=== PATIENT | female | born 1980 | race Two or more races ===

== ENCOUNTER 2016-07-29 04:36 | Inpatient (IN) | payer OTHER ==
[2016-07-29] MEDS ORDERED: ONDANSETRON HCL INJ/PF 4 MG/2 ML SDV IV ONE (05:05)
[2016-07-29] MEDS ORDERED: ACETAMINOPHEN 325 MG TABLET PO ONE ×2 (05:05→09:18)
[2016-07-29] MEDS ORDERED: MORPHINE SULFATE 10 MG/ML INJ IV ONE (05:05)
[2016-07-29] MEDS ORDERED: NORMAL SALINE 1000 ML 1,000 ML IV ONE ×3 (05:06→07:43)
--- NOTE | 2016-07-29 05:13 | ER Document Report ---
ED GI/ <AFUAROSALIE - Last Filed: 07/29/16 10:08> - General TRAVEL OUTSIDE OF THE [place] IN LAST 30 DAYS: No <JOSS LOPEZ - Last Filed: 07/29/16 23:16> - General Chief Complaint: Flank Pain Stated Complaint: SHORTNESS OF BREATH Notes: Patient is a 35-year-old female that comes emergency department for chief complaint of pain in both sides of her mid to lower back, fever, chills, and nausea when she tries to eat. Patient states symptoms started about 6 days ago , initially started out his burning with urination, seen by primary care and placed on Bactrim, she states symptoms have only worsened. Patient has had a menstrual cycle this month, she denies any daily medications, she denies any other medical history. (JOSS LOPEZ) - Related Data Allergies/Adverse Reactions: No Known Allergies Allergy (Verified 07/29/16 04:41) Home Medications: Current Home Medications No Home Medications 07/29/16 [History] Past Medical History - General Information source: Patient - Social History Smoking Status: Never Smoker Chew tobacco use (# tins/day): No Frequency of alcohol use: None Drug Abuse: None Lives with: Family Family History: Reviewed & Not Pertinent Patient has suicidal ideation: No Patient has homicidal ideation: No Renal/ Medical History: Denies: Hx Peritoneal Dialysis Psychiatric Medical History: Reports: Hx Anxiety, Hx Depression - Immunizations Hx Diphtheria, Pertussis, Tetanus Vaccination: Yes <JOSS LOPEZ - Last Filed: 07/29/16 23:16> Review of Systems - Review of Systems Constitutional: See HPI EENT: No symptoms reported Cardiovascular: No symptoms reported Respiratory: No symptoms reported Gastrointestinal: See HPI Genitourinary: See HPI Female Genitourinary: No symptoms reported Musculoskeletal: No symptoms reported Skin: No symptoms reported Hematologic/Lymphatic: No symptoms reported Neurological/Psychological: No symptoms reported <JOSS LOPEZ - Last Filed: 07/29/16 23:16> Physical Exam - Vital signs Interpretation: Normal - General General appearance: Alert, Anxious In distress: Mild - HEENT Head: Normocephalic, Atraumatic Eyes: Normal Pupils: PERRL - Respiratory Respiratory status: No respiratory distress Chest status: Nontender Breath sounds: Normal Chest palpation: Normal - Cardiovascular Rhythm: Regular, Tachycardia Heart sounds: Normal auscultation, S1 appreciated, S2 appreciated Murmur: No - Abdominal Inspection: Normal Distension: No distension Bowel sounds: Normal Tenderness: Nontender. No: Tender, Guarding Organomegaly: No organomegaly - Back Back: CVA tenderness - Marked CVA tenderness bilaterally - Extremities General upper extremity: Normal inspection, Nontender, Normal color, Normal ROM , Normal temperature General lower extremity: Normal inspection, Nontender, Normal color, Normal ROM , Normal temperature, Normal weight bearing. No: [place]'s sign - Neurological Neuro grossly intact: Yes Cognition: Normal Orientation: AAOx4 Wayne Coma Scale Eye Opening: Spontaneous Wayne Coma Scale Verbal: Oriented [place] Coma Scale Motor: Obeys Commands Wayne Coma Scale Total: 15 Speech: Normal Motor strength normal: LUE, RUE, LLE, RLE Sensory: Normal - Psychological Associated symptoms: Anxious - Skin Skin Temperature: Warm Skin Moisture: Dry Skin Color: Normal <JOSS LOPEZ - Last Filed: 07/29/16 23:16> - Vital signs Vitals: Temp Pulse Resp BP Pulse Ox 100.6 F H 124 H 20 108/75 96 07/29/16 04:52 07/29/16 04:52 07/29/16 04:52 07/29/16 04:52 07/29/16 04:52 (ROSALIE CAAL) (JOSS LOPEZ) Course - Laboratory Result Diagrams: 07/29/16 05:15 07/29/16 05:15 <ROSALIE CAAL - Last Filed: 07/29/16 10:08> - Laboratory Result Diagrams: 07/29/16 05:15 07/29/16 16:10 <JOSS LOPEZ - Last Filed: 07/29/16 23:16> - Re-evaluation Re-evalutation: 07/29/16 07:46 Patient continues mildly tachycardic 104, blood pressure 103/58. Patient reports feeling somewhat improved from initial presentation. Patient's breath sounds clear bilaterally, patient with good cap refill less than 3 seconds, skin to trunk slightly moist, patient reports that initially she was diaphoretic. Patient with good peripheral pulses bilaterally. 07/29/16 09:00 pt blood pressure 94/60. Patient tachycardic 1:15. Urinalysis resulted. RN to attain temperature. 07/29/16 09:[address] Daniels regarding admission of patient. Agrees to come and examine patient 07/29/16 09:[address] Stanton regarding patient presentation. Review of patient's previous records shows that patient has run blood pressure 100s over 60s in the past. Patient does continues tachycardic 130's, with blood pressure 90s over 60s. 07/29/16 09:30 Dr. Stanton to bedside for examination. Does not recommend any additional IV fluid bolus or pressors at this time. Recommends giving patient Toradol 15 mg IV and treating her fever that is currently 101. 07/29/16 09:43 Patients chills/rigors are improving after Toradol was given. Heart rate 120s. 07/29/16 09:53 HR 110's, BP 112/68 07/29/16 10:07 Patient drinking oral contrast. RN states that hospitalist has evaluated patient and has written orders for admission. (ROSALIE CAAL) Initial presentation patient noted to be tachycardic and febrile, not hypotensive, has chills and pain in bilateral CVA locations, abdomen is benign on examination. After Tylenol, pain medication, IV fluids patient states she feels much better, no longer in pain, she states she would like to go home. Levaquin infusing. Leukocytosis of 18,000, kidney function is unremarkable, urine is still pending. Urine delayed, called lab twice, finally urinalysis was being performed, report given to Mateo PENNY at bedside due to delay. Initially patient still stating she wants to go home, however because patient continues to be tachycardic, has become somewhat hypotensive, lactic acid, venous blood gas, and continuing monitoring will be performed, patient will be discussed with hospitalist for admission for pyelonephritis and suspected sepsis. (JOSS LOPEZ) - Vital Signs Vital signs: Temp Pulse Resp BP Pulse Ox 101.1 F H 117 H 20 102/52 L 97 07/29/16 17:52 07/29/16 17:52 07/29/16 22:31 07/29/16 22:31 07/29/16 22:31 (ROSALIE CAAL) (JOSS LOPEZ) - Laboratory Laboratory results interpreted by me: 07/29/16 07/29/16 07/29/16 05:15 05:15 05:15 WBC 18.6 H Seg Neutrophils % 83.8 H Lymphocytes % 7.8 L Absolute Neutrophils 15.6 H Absolute Monocytes 1.5 H Sodium 135.7 L Glucose 122 H Phosphorus 2.3 L Urine Protein Urine Ketones Urine Blood Ur Leukocyte Esterase 07/29/16 06:03 WBC Seg Neutrophils % Lymphocytes % Absolute Neutrophils Absolute Monocytes Sodium Glucose Phosphorus Urine Protein 100 H Urine Ketones 80 H Urine Blood LARGE H Ur Leukocyte Esterase SMALL H (ROSALIE CAAL) Discharge - Discharge Admitting Provider: Hospitalist Unit Admitted: ICU <ROSALIE CAAL - Last Filed: 07/29/16 10:08> - Discharge Admitting Provider: Hospitalist Unit Admitted: ICU <JOSS LOPEZ - Last Filed: 07/29/16 23:16> - Discharge Clinical Impression: Pyelonephritis Fever Qualifiers: Fever type: unspecified Qualified Code(s): R50.9 - Fever, unspecified Condition: Serious Disposition: ADMITTED INPATIENT
[2016-07-29 05:35] LABS: ABSOLUTE LYMPHOCYTES (AUTO) 1.4 10^3/uL (0.5-4.7); ABSOLUTE MONOCYTES (AUTO) 1.5 10^3/uL (0.1-1.4); ABSOLUTE NEUT (AUTO) 15.6 10^3/uL (1.7-8.2); BASOPHILS % (AUTO) 0.2 % (0-2); HEMATOCRIT 37.5 % (36.0-47.0); HEMOGLOBIN 12.2 g/dL (12.0-15.5); HGB HCT DIFFERENCE -0.9; LYMPHOCYTES % (AUTO) 7.8 % (13-45); MEAN CORPUSCULAR HEMOGLOBIN 28.6 pg (27.0-33.4); MEAN CORPUSCULAR HGB CONC 32.6 g/dL (32.0-36.0); MEAN CORPUSCULAR VOLUME 88 fl (80-97); MONOCYTES % (AUTO) 8.2 % (3-13); RED BLOOD COUNT 4.28 10^6/uL (3.72-5.28); RED CELL DISTRIBUTION WIDTH 12.6 % (11.5-14.0); SEGMENTED NEUTROPHILS % (AUTO) 83.8 % (42-78); WHITE BLOOD COUNT 18.6 10^3/uL (4.0-10.5)
[2016-07-29] MEDS ORDERED: LEVOFLOXACIN 750 MG/D5W RTU 150 ML IV ONE (05:44)
[2016-07-29 05:53] LABS: ANION GAP 15 (5-19); BLOOD UREA NITROGEN 8 mg/dL (7-20); CALCIUM 9.2 mg/dL (8.4-10.2); CARBON DIOXIDE 23 mmol/L (22-30); CHLORIDE 98 mmol/L (98-107); CREATININE RESULT 0.78 mg/dL (0.52-1.25); GLUCOSE 122 mg/dL (75-110); POTASSIUM 3.8 mmol/L (3.6-5.0); SODIUM 135.7 mmol/L (137-145)
[2016-07-29 07:43] LABS: APPEARANCE,URINE SLIGHTLY-CLOUDY; BILIRUBIN,URINE NEGATIVE (NEGATIVE); GLUCOSE, URINE NEGATIVE (NEGATIVE); KETONES,URINE 80 mg/dL (NEGATIVE); LEUKOCYTE ESTERASE,URINE SMALL (NEGATIVE); NITRITE,URINE NEGATIVE (NEGATIVE); PROTEIN,URINE 100 mg/dL (NEGATIVE); URINE SPECIFIC GRAVITY 1.013; UROBILINOGEN,URINE NEGATIVE mg/dL (<2.0)
[2016-07-29 08:33] LABS: VENOUS BLOOD BASE EXCESS -3.1 mmol/L; VENOUS BLOOD HCO3 21.5 mmol/L (20-32); VENOUS BLOOD PH 7.38 (7.30-7.42)
[2016-07-29] MEDS ORDERED: KETOROLAC TROMETHAMINE INJ/PF 30 MG/1 ML SDV IV ONE (09:27)
[2016-07-29] MEDS ORDERED: CEFTRIAXONE RTU 1 GM/D5W 50 ML IV ONE (09:31)
[2016-07-29] MEDS ORDERED: MAGNESIUM HYDROXIDE SUSP 30 ML UDCUP PO PRN (09:41)
[2016-07-29 10:42] LABS: PROTHROMBIN TIME 14.9 SEC (11.4-15.4)
[2016-07-29 11:07] LABS: LIPASE 30.3 U/L (23-300); MAGNESIUM 1.6 mg/dL (1.6-2.3); PHOSPHORUS 2.3 mg/dL (2.5-4.5)
[2016-07-29] MEDS: NORMAL SALINE 1000 ML 1,000 ML IV PRN ×2 (11:14→22:00)
[2016-07-29] MEDS: PIPERACILLIN SODIUM/TAZOBACTAM 3.375 GM in NORMAL SALINE 100 ML IV SCH ×2 (11:15→18:24)
[2016-07-29] MEDS: PANTOPRAZOLE SODIUM 40 MG VIAL IV SCH ×2 (11:20→23:00)
[2016-07-29] MEDS: DOCUSATE SODIUM 100 MG CAPSULE PO SCH (11:21)
[2016-07-29] MEDS: 1/2 NORMAL SALINE 1,000 ML IV PRN ×4 (12:00→19:30)
--- NOTE | 2016-07-29 13:08 | PDOC H&P ---
History of Present Illness Admission Date/PCP: 07/29/16 09:41 Patient complains of: Fevers chills and weakness with flank pain History of Present Illness: SYDNEE BROWNING is a 35 year old female presents from home with the above complaints for the past week. She was seen by her primary care provider at the beginning of the week and diagnosed with urinary tract infection and placed on Bactrim therapy. She does not notice any improvement while on this therapy. She continues to have increasing flank pain now bilateral. She reports subjective fevers at home, rigors, nausea with vomiting, diarrhea 24 hour period. This all started with dysuria on Monday. Her condition is severely declined to the point that she is not able to keep anything down take anything orally though she reports taking the Bactrim as prescribed. In the emergency department she was found to be hypotensive with a probable pyelonephritis and septic shock we were asked to admit for further treatment and investigation. Past Medical History Psychiatric Medical History: Reports: Depression Past Surgical History Past Surgical History: Reports: None Social History Information Source: Patient Smoking Status: Never Smoker Frequency of Alcohol Use: None Hx Recreational Drug Use: No - Advance Directive Resuscitation Status: Full Code Family History Family History: Reviewed & Not Pertinent Parental Family History Reviewed: Yes Children Family History Reviewed: Yes Sibling(s) Family History Reviewed.: Yes Medication/Allergy Allergies/Adverse Reactions: No Known Allergies Allergy (Verified 07/29/16 04:41) Review of Systems Constitutional: PRESENT: anorexia, chills, fatigue, fever(s), headache(s), night sweats, weakness. ABSENT: weight gain, weight loss Eyes: ABSENT: visual disturbances Ears: ABSENT: hearing changes Cardiovascular: ABSENT: chest pain, dyspnea on exertion, edema, orthropnea, palpitations Respiratory: ABSENT: cough, hemoptysis Gastrointestinal: PRESENT: abdominal pain, constipation, diarrhea, nausea, vomiting. ABSENT: hematemesis, hematochezia Genitourinary: PRESENT: dysuria. ABSENT: hematuria Musculoskeletal: ABSENT: joint swelling Integumentary: ABSENT: rash, wounds Neurological: ABSENT: abnormal gait, abnormal speech, confusion, dizziness, focal weakness, syncope Psychiatric: ABSENT: anxiety, depression, homidical ideation, suicidal ideation Endocrine: ABSENT: cold intolerance, heat intolerance, polydipsia, polyuria Hematologic/Lymphatic: ABSENT: easy bleeding, easy bruising Physical Exam Vital Signs: Temp Pulse Resp BP Pulse Ox 101 F H 124 H 34 H 93/58 L 100 07/29/16 09:25 07/29/16 04:52 07/29/16 12:01 07/29/16 12:01 07/29/16 12:01 General appearance: PRESENT: mild distress, well-developed, well-nourished Head exam: PRESENT: atraumatic, normocephalic Eye exam: PRESENT: conjunctiva pink, EOMI, PERRLA. ABSENT: scleral icterus Ear exam: PRESENT: normal external ear exam Mouth exam: PRESENT: dry mucosa, tongue midline Neck exam: ABSENT: carotid bruit, JVD, lymphadenopathy, thyromegaly Respiratory exam: PRESENT: clear to auscultation dinorah. ABSENT: rales, rhonchi, wheezes Cardiovascular exam: PRESENT: RRR, tachycardia. ABSENT: diastolic murmur, rubs , systolic murmur Pulses: PRESENT: normal dorsalis pedis pul Vascular exam: PRESENT: normal capillary refill GI/Abdominal exam: PRESENT: mass, normal bowel sounds, soft, tenderness - Bilateral flank pain over the lower poles of both kidneys. ABSENT: distended, guarding, rebound Rectal exam: PRESENT: deferred Extremities exam: PRESENT: full ROM. ABSENT: calf tenderness, clubbing, pedal edema Neurological exam: PRESENT: alert, awake, oriented to person, oriented to place , oriented to time, oriented to situation Psychiatric exam: PRESENT: appropriate affect, normal mood. ABSENT: homicidal ideation, suicidal ideation Skin exam: PRESENT: dry, intact, warm. ABSENT: cyanosis, rash Results Laboratory Results: Labs- Last Values WBC 18.6 10^3/uL (4.0-10.5) H 07/29/16 05:15 RBC 4.28 10^6/uL (3.72-5.28) 07/29/16 05:15 Hgb 12.2 g/dL (12.0-15.5) 07/29/16 05:15 Hct 37.5 % (36.0-47.0) 07/29/16 05:15 MCV 88 fl (80-97) 07/29/16 05:15 MCH 28.6 pg (27.0-33.4) 07/29/16 05:15 MCHC 32.6 g/dL (32.0-36.0) 07/29/16 05:15 RDW 12.6 % (11.5-14.0) 07/29/16 05:15 Plt Count 181 10^3/uL (150-450) 07/29/16 05:15 Seg Neutrophils % 83.8 % (42-78) H 07/29/16 05:15 Lymphocytes % 7.8 % (13-45) L 07/29/16 05:15 Monocytes % 8.2 % (3-13) 07/29/16 05:15 Eosinophils % 0.0 % (0-6) 07/29/16 05:15 Basophils % 0.2 % (0-2) 07/29/16 05:15 Absolute Neutrophils 15.6 10^3/uL (1.7-8.2) H 07/29/16 05:15 Absolute Lymphocytes 1.4 10^3/uL (0.5-4.7) 07/29/16 05:15 Absolute Monocytes 1.5 10^3/uL (0.1-1.4) H 07/29/16 05:15 Absolute Eosinophils 0.0 10^3/uL (0.0-0.6) 07/29/16 05:15 Absolute Basophils 0.0 10^3/uL (0.0-0.2) 07/29/16 05:15 PT 14.9 SEC (11.4-15.4) 07/29/16 05:15 INR 1.13 07/29/16 05:15 VBG pH 7.38 (7.30-7.42) 07/29/16 08:00 VBG pCO2 37.0 mmHg (35-63) 07/29/16 08:00 VBG HCO3 21.5 mmol/L (20-32) 07/29/16 08:00 VBG Base Excess -3.1 mmol/L 07/29/16 08:00 Sodium 135.7 mmol/L (137-145) L 07/29/16 05:15 Potassium 3.8 mmol/L (3.6-5.0) 07/29/16 05:15 Chloride 98 mmol/L (98-107) 07/29/16 05:15 Carbon Dioxide 23 mmol/L (22-30) 07/29/16 05:15 Anion Gap 15 (5-19) 07/29/16 05:15 BUN 8 mg/dL (7-20) 07/29/16 05:15 Creatinine 0.78 mg/dL (0.52-1.25) 07/29/16 05:15 Est GFR ( Amer) > 60 (>60) 07/29/16 05:15 Est GFR (Non-Af Amer) > 60 (>60) 07/29/16 05:15 Glucose 122 mg/dL (75-110) H 07/29/16 05:15 Lactic Acid 0.8 mmol/L (0.7-2.1) 07/29/16 08:00 Calcium 9.2 mg/dL (8.4-10.2) 07/29/16 05:15 Phosphorus 2.3 mg/dL (2.5-4.5) L 07/29/16 05:15 Magnesium 1.6 mg/dL (1.6-2.3) 07/29/16 05:15 Amylase 38 U/L (30-110) 07/29/16 05:15 Lipase 30.3 U/L (23-300) 07/29/16 05:15 Urine Color YELLOW 07/29/16 06:03 Urine Appearance SLIGHTLY-CLOUDY 07/29/16 06:03 Urine pH 5.0 (5.0-9.0) 07/29/16 06:03 Ur Specific [place] 1.013 07/29/16 06:03 Urine Protein 100 mg/dL (NEGATIVE) H 07/29/16 06:03 Urine Glucose (UA) NEGATIVE mg/dL (NEGATIVE) 07/29/16 06:03 Urine Ketones 80 mg/dL (NEGATIVE) H 07/29/16 06:03 Urine Blood LARGE (NEGATIVE) H 07/29/16 06:03 Urine Nitrite NEGATIVE (NEGATIVE) 07/29/16 06:03 Urine Bilirubin NEGATIVE (NEGATIVE) 07/29/16 06:03 Urine Urobilinogen NEGATIVE mg/dL (<2.0) 07/29/16 06:03 Ur Leukocyte Esterase SMALL (NEGATIVE) H 07/29/16 06:03 Urine WBC (Auto) 53 /HPF 07/29/16 06:03 Urine RBC (Auto) 127 /HPF 07/29/16 06:03 Urine Bacteria (Auto) 3+ /HPF 07/29/16 06:03 Squamous Epi Cells Auto 1 /HPF 07/29/16 06:03 Urine Mucus (Auto) OCC /LPF 07/29/16 06:03 Urine Ascorbic Acid NEGATIVE (NEGATIVE) 07/29/16 06:03 Urine HCG, Qual NEGATIVE (NEGATIVE) 07/29/16 06:03 07/29/16 08:24 Blood Culture - Pending Blood 07/29/16 06:03 Urine Culture - Pending Clean Catch Midstream 07/29/16 05:15 Blood Culture - Pending Blood Impressions: Guidance Fluoroscopy 07/29/16 00:00 IMPRESSION: SUCCESSFUL PLACEMENT OF A 5 FR DUAL LUMEN 43 CM PICC IN THE left basilic VEIN. Interventional Vascular Procedure 07/29/16 00:00 IMPRESSION: SUCCESSFUL PLACEMENT OF A 5 FR DUAL LUMEN 43 CM PICC IN THE left basilic VEIN. PICC Line Insertion 07/29/16 00:00 IMPRESSION: SUCCESSFUL PLACEMENT OF A 5 FR DUAL LUMEN 43 CM PICC IN THE left basilic VEIN. Assessment & Plan - Diagnosis (1) Pyelonephritis Is this a current diagnosis for this admission?: YesPlan: Admitted to the ICU for aggressive IV fluids. Will start empiric Zosyn therapy as she has failed Bactrim. If her condition were to deteriorate further will add vancomycin while we await culture results to narrow spectrum IV antibiotics. Interventional radiology consulted for urgent PICC line placement. Will check CT of the abdomen and pelvis looking for perinephric stranding hydronephrosis obstruction etc. (2) Septic shock Is this a current diagnosis for this admission?: YesPlan: Requires placement in the ICU for critical care hemodynamic monitoring. Aggressive IV rehydration and if fails we'll add stress dose steroids, trend H&H , monitor renal function. - Time Time Spent: 50 to 70 Minutes Anticipated discharge: Home Within: within 72 hours
[2016-07-29] MEDS: MORPHINE SULFATE 10 MG/ML INJ IV PRN ×2 (14:10→18:28)
[2016-07-29] MEDS: ACETAMINOPHEN 325 MG TABLET PO PRN ×2 (14:10→18:29)
[2016-07-29] MEDS: ONDANSETRON HCL INJ/PF 4 MG/2 ML SDV IV PRN ×2 (14:10→18:28)
[2016-07-29] MEDS: KETOROLAC TROMETHAMINE INJ/PF 30 MG/1 ML SDV IV PRN ×2 (15:10→21:00)
[2016-07-29] MEDS ORDERED: 1/2 NORMAL SALINE 1,000 ML IV ONE (15:50)
[2016-07-29 17:07] LABS: ANION GAP 12 (5-19); BLOOD UREA NITROGEN 6 mg/dL (7-20); CARBON DIOXIDE 19 mmol/L (22-30); CHLORIDE 101 mmol/L (98-107); CREATININE RESULT 0.63 mg/dL (0.52-1.25); GLUCOSE 102 mg/dL (75-110); POTASSIUM 3.4 mmol/L (3.6-5.0); SODIUM 132.2 mmol/L (137-145)
[2016-07-29 17:37] LABS: CALCIUM 7.3 mg/dL (8.4-10.2)
[2016-07-30] MEDS: ACETAMINOPHEN 325 MG TABLET PO PRN ×2 (01:20→11:44)
[2016-07-30] MEDS: ONDANSETRON HCL INJ/PF 4 MG/2 ML SDV IV PRN ×2 (01:40→18:40)
[2016-07-30 07:12] LABS: ANION GAP 11 (5-19); BLOOD UREA NITROGEN 5 mg/dL (7-20); CALCIUM 7.7 mg/dL (8.4-10.2); CARBON DIOXIDE 19 mmol/L (22-30); CHLORIDE 107 mmol/L (98-107); CREATININE RESULT 0.54 mg/dL (0.52-1.25); GLUCOSE 106 mg/dL (75-110); POTASSIUM 3.5 mmol/L (3.6-5.0); SODIUM 136.8 mmol/L (137-145)
[2016-07-30 07:16] LABS: ABSOLUTE LYMPHOCYTES (AUTO) 1.1 10^3/uL (0.5-4.7); ABSOLUTE MONOCYTES (AUTO) 1.4 10^3/uL (0.1-1.4); ABSOLUTE NEUT (AUTO) 15.1 10^3/uL (1.7-8.2); BASOPHILS % (AUTO) 0.3 % (0-2); EOSINOPHILS % (AUTO) 0.1 % (0-6); HEMATOCRIT 28.6 % (36.0-47.0); HGB HCT DIFFERENCE 0.5; LYMPHOCYTES % (AUTO) 6.2 % (13-45); MEAN CORPUSCULAR HEMOGLOBIN 29.4 pg (27.0-33.4); MEAN CORPUSCULAR HGB CONC 33.7 g/dL (32.0-36.0); MEAN CORPUSCULAR VOLUME 87 fl (80-97); MONOCYTES % (AUTO) 7.9 % (3-13); RED BLOOD COUNT 3.28 10^6/uL (3.72-5.28); RED CELL DISTRIBUTION WIDTH 12.4 % (11.5-14.0); SEGMENTED NEUTROPHILS % (AUTO) 85.5 % (42-78); WHITE BLOOD COUNT 17.7 10^3/uL (4.0-10.5)
[2016-07-30 07:18] LABS: HEMOGLOBIN 9.7 g/dL (12.0-15.5)
[2016-07-30] MEDS: ENOXAPARIN SODIUM INJ 40 MG/0.4 ML DISP.SYRIN SUBCUT SCH (08:27)
[2016-07-30] MEDS: PANTOPRAZOLE SODIUM 40 MG VIAL IV SCH ×2 (09:17→21:22)
[2016-07-30] MEDS: DOCUSATE SODIUM 100 MG CAPSULE PO SCH (09:18)
--- NOTE | 2016-07-30 10:42 | PDOC PROGRESS REPORT ---
Subjective Progress Note for:: 07/30/16 Subjective:: SYDNEE BROWNING is a 35 year old female presents from home with the above complaints for the past week. She was seen by her primary care provider at the beginning of the week and diagnosed with urinary tract infection and placed on Bactrim therapy. She does not notice any improvement while on this therapy. She continues to have increasing flank pain now bilateral. She reports subjective fevers at home, rigors, nausea with vomiting, diarrhea 24 hour period. This all started with dysuria on Monday. Her condition is severely declined to the point that she is not able to keep anything down take anything orally though she reports taking the Bactrim as prescribed. In the emergency department she was found to be hypotensive with a probable pyelonephritis and septic shock we were asked to admit for further treatment and investigation. After aggressive fluid resuscitation, several liters of IV fluids, and initiation of antibiotic therapy the patient has finally stabilized. Her hemodynamics more consistent with a healthy 35-year-old female. Her pain is better controlled this morning. Her nausea has largely resolved. CT of the abdomen and pelvis revealed findings in the left kidney suggestive of pyelonephritis as likely explanation for her presentation. Physical Exam Vital Signs: Temp Pulse Resp BP Pulse Ox 98.3 F 117 H 24 H 97/72 L 85 L 07/30/16 10:03 07/29/16 17:52 07/30/16 10:02 07/30/16 10:02 07/30/16 10:02 Intake & Output 07/29/16 07/30/16 07/31/16 06:59 06:59 06:59 Output Total 3525 Balance -3525 General appearance: PRESENT: no acute distress, well-developed, well-nourished Head exam: PRESENT: atraumatic, normocephalic Eye exam: PRESENT: conjunctiva pink, EOMI, PERRLA. ABSENT: scleral icterus Mouth exam: PRESENT: moist, tongue midline Neck exam: ABSENT: JVD, tracheal deviation Respiratory exam: PRESENT: clear to auscultation dinorah, unlabored. ABSENT: rales , rhonchi, wheezes Cardiovascular exam: PRESENT: RRR, tachycardia. ABSENT: diastolic murmur, rubs , systolic murmur Pulses: PRESENT: normal dorsalis pedis pul Vascular exam: PRESENT: normal capillary refill GI/Abdominal exam: PRESENT: normal bowel sounds, soft, tenderness - Still some tenderness that now localizes mostly to the left flank and left lower quadrant; negative CVA tenderness. ABSENT: distended, guarding, rebound Rectal exam: PRESENT: deferred Extremities exam: PRESENT: full ROM, pedal edema - Nonpitting edema of the bilateral lower extremities. ABSENT: calf tenderness, clubbing Neurological exam: PRESENT: alert, awake, oriented to person, oriented to place , oriented to time, oriented to situation Psychiatric exam: PRESENT: appropriate affect, normal mood Skin exam: PRESENT: intact, warm - Moist. ABSENT: cyanosis, rash Results Laboratory Results: 07/30/16 06:43 07/30/16 06:43 07/29/16 07/30/16 07/30/16 16:10 06:43 06:43 WBC 17.7 H RBC 3.28 L Hgb 9.7 L D Hct 28.6 L MCV 87 MCH 29.4 MCHC 33.7 RDW 12.4 Plt Count 132 L Seg Neutrophils % 85.5 H Lymphocytes % 6.2 L Monocytes % 7.9 Eosinophils % 0.1 Basophils % 0.3 Absolute Neutrophils 15.1 H Absolute Lymphocytes 1.1 Absolute Monocytes 1.4 Absolute Eosinophils 0.0 Absolute Basophils 0.0 Sodium 132.2 L 136.8 L Potassium 3.4 L 3.5 L Chloride 101 107 Carbon Dioxide 19 L 19 L Anion Gap 12 11 BUN 6 L 5 L Creatinine 0.63 0.54 Est GFR ( Amer) > 60 > 60 Est GFR (Non-Af Amer) > 60 > 60 Glucose 102 106 Calcium 7.3 L 7.7 L Impressions: Abdomen/Pelvis CT 07/29/16 00:00 IMPRESSION: Abnormal enhancement pattern in the left kidney suspicious for pyelonephritis or infarction. Correlation with urinalysis is recommended Guidance Fluoroscopy 07/29/16 00:00 IMPRESSION: SUCCESSFUL PLACEMENT OF A 5 FR DUAL LUMEN 43 CM PICC IN THE left basilic VEIN. Interventional Vascular Procedure 07/29/16 00:00 IMPRESSION: SUCCESSFUL PLACEMENT OF A 5 FR DUAL LUMEN 43 CM PICC IN THE left basilic VEIN. PICC Line Insertion 07/29/16 00:00 IMPRESSION: SUCCESSFUL PLACEMENT OF A 5 FR DUAL LUMEN 43 CM PICC IN THE left basilic VEIN. Assessment & Plan - Diagnosis (1) Pyelonephritis Is this a current diagnosis for this admission?: YesPlan: Stable to downgrade to IMCU. Continue empiric Zosyn therapy as she has failed outpatient Bactrim. If her condition were to deteriorate further will add vancomycin while we await culture results to narrow spectrum IV antibiotics. Interventional radiology consulted for successful urgent PICC line placement. CT of the abdomen and pelvis confirms pyelonephritis. (2) Septic shock Is this a current diagnosis for this admission?: YesPlan: Continue Aggressive IV rehydration and, trend H&H, monitor renal function. (3) Hypokalemia Is this a current diagnosis for this admission?: YesPlan: Mild. Adjust IV fluids accordingly. Continue to monitor. (4) Anemia Qualifiers: Anemia type: unspecified type Qualified Code(s): D64.9 - Anemia, unspecified Is this a current diagnosis for this admission?: YesPlan: No evidence for acute blood loss. In July to trend H&H. Likely due to sepsis. - Time Time Spent with patient: 25-34 minutes
[2016-07-30] MEDS: PIPERACILLIN SODIUM/TAZOBACTAM 3.375 GM in NORMAL SALINE 100 ML IV SCH ×3 (11:31→23:53)
[2016-07-30] MEDS: POTASSI CL 20 MEQ/1/2NS 1L 1,000 ML IV PRN ×2 (11:31→18:11)
[2016-07-30] MEDS: KETOROLAC TROMETHAMINE INJ/PF 30 MG/1 ML SDV IV PRN ×2 (11:33→18:58)
[2016-07-30] MEDS ORDERED: NORMAL SALINE 1000 ML 1,000 ML IV ONE (13:14)
[2016-07-30] MEDS ORDERED: OXYCODONE-ACETAMINOPHEN 5-325 MG TABLET PO PRN (17:59)
[2016-07-30] MEDS: OXYCODONE-ACETAMINOPHEN 5-325 MG TABLET PO PRN ×2 (18:13→21:51)
[2016-07-31] MEDS: POTASSI CL 20 MEQ/1/2NS 1L 1,000 ML IV PRN (02:49)
[2016-07-31] MEDS: OXYCODONE-ACETAMINOPHEN 5-325 MG TABLET PO PRN ×5 (04:37→21:25)
[2016-07-31 06:51] LABS: ABSOLUTE BASOPHILS # (AUTO) 0.1 10^3/uL (0.0-0.2); ABSOLUTE EOSINOPHILS # (AUTO) 0.1 10^3/uL (0.0-0.6); ABSOLUTE LYMPHOCYTES (AUTO) 1.2 10^3/uL (0.5-4.7); ABSOLUTE NEUT (AUTO) 13.9 10^3/uL (1.7-8.2); BASOPHILS % (AUTO) 0.4 % (0-2); EOSINOPHILS % (AUTO) 0.5 % (0-6); HEMATOCRIT 28.7 % (36.0-47.0); HEMOGLOBIN 9.6 g/dL (12.0-15.5); HGB HCT DIFFERENCE 0.1; LYMPHOCYTES % (AUTO) 7.6 % (13-45); MEAN CORPUSCULAR HEMOGLOBIN 29.1 pg (27.0-33.4); MEAN CORPUSCULAR HGB CONC 33.6 g/dL (32.0-36.0); MEAN CORPUSCULAR VOLUME 87 fl (80-97); MONOCYTES % (AUTO) 6.3 % (3-13); RED CELL DISTRIBUTION WIDTH 12.6 % (11.5-14.0); SEGMENTED NEUTROPHILS % (AUTO) 85.2 % (42-78); WHITE BLOOD COUNT 16.3 10^3/uL (4.0-10.5)
[2016-07-31 07:06] LABS: ANION GAP 9 (5-19); BLOOD UREA NITROGEN 6 mg/dL (7-20); CALCIUM 8.1 mg/dL (8.4-10.2); CARBON DIOXIDE 23 mmol/L (22-30); CHLORIDE 108 mmol/L (98-107); CREATININE RESULT 0.52 mg/dL (0.52-1.25); GLUCOSE 84 mg/dL (75-110); POTASSIUM 3.6 mmol/L (3.6-5.0); SODIUM 139.8 mmol/L (137-145)
[2016-07-31] MEDS ORDERED: NORMAL SALINE 10 ML SDV (AFTER EACH USE) IV PRN (07:20)
[2016-07-31] MEDS: PIPERACILLIN SODIUM/TAZOBACTAM 3.375 GM in NORMAL SALINE 100 ML IV SCH ×4 (07:53→23:22)
[2016-07-31] MEDS: ENOXAPARIN SODIUM INJ 40 MG/0.4 ML DISP.SYRIN SUBCUT SCH (07:59)
[2016-07-31] MEDS: KETOROLAC TROMETHAMINE INJ/PF 30 MG/1 ML SDV IV PRN ×2 (10:37→16:50)
[2016-07-31] MEDS: DOCUSATE SODIUM 100 MG CAPSULE PO SCH (10:38)
[2016-07-31] MEDS: NORMAL SALINE 10 ML SDV (SCHEDULED) IV SCH ×2 (10:38→21:26)
--- NOTE | 2016-07-31 11:30 | PDOC PROGRESS REPORT ---
Subjective Progress Note for:: 07/31/16 Subjective:: SYDNEE BROWNING is a 35 year old female presents from home with the above complaints for the past week. She was seen by her primary care provider at the beginning of the week and diagnosed with urinary tract infection and placed on Bactrim therapy. She does not notice any improvement while on this therapy. She continues to have increasing flank pain now bilateral. She reports subjective fevers at home, rigors, nausea with vomiting, diarrhea 24 hour period. This all started with dysuria on Monday. Her condition is severely declined to the point that she is not able to keep anything down take anything orally though she reports taking the Bactrim as prescribed. In the emergency department she was found to be hypotensive with a probable pyelonephritis and septic shock we were asked to admit for further treatment and investigation. After aggressive fluid resuscitation, several liters of IV fluids, and initiation of antibiotic therapy the patient has finally stabilized. Her hemodynamics more consistent with a healthy 35-year-old female. Her pain is better controlled this morning. Her nausea has largely resolved. She is up ambulating in the room. CT of the abdomen and pelvis revealed findings in the left kidney suggestive of pyelonephritis as likely explanation for her presentation. Physical Exam Vital Signs: Temp Pulse Resp BP Pulse Ox 98.3 F 94 16 112/69 100 07/31/16 08:22 07/31/16 08:22 07/31/16 08:22 07/31/16 08:22 07/31/16 08:22 Intake & Output 07/30/16 07/31/16 08/01/16 06:59 06:59 06:59 Intake Total 1546 Output Total 3525 Balance -3525 1546 Weight 99.836 kg General appearance: PRESENT: no acute distress, well-developed, well-nourished Head exam: PRESENT: atraumatic, normocephalic Eye exam: PRESENT: conjunctiva pink, EOMI, PERRLA. ABSENT: scleral icterus Mouth exam: PRESENT: moist, tongue midline Neck exam: ABSENT: JVD, tracheal deviation Respiratory exam: PRESENT: clear to auscultation dinorah. ABSENT: rales, rhonchi, wheezes Cardiovascular exam: PRESENT: RRR. ABSENT: diastolic murmur, rubs, systolic murmur Pulses: PRESENT: normal dorsalis pedis pul Vascular exam: PRESENT: normal capillary refill GI/Abdominal exam: PRESENT: normal bowel sounds, soft, tenderness - Mild left flank tender Rectal exam: PRESENT: deferred Extremities exam: PRESENT: full ROM. ABSENT: calf tenderness, clubbing, pedal edema Neurological exam: PRESENT: alert, awake, oriented to person, oriented to place , oriented to time, oriented to situation Psychiatric exam: PRESENT: appropriate affect, normal mood Skin exam: PRESENT: dry, intact, warm. ABSENT: cyanosis, rash Results Laboratory Results: 07/31/16 06:00 07/31/16 06:00 07/31/16 07/31/16 06:00 06:00 WBC 16.3 H RBC 3.30 L Hgb 9.6 L Hct 28.7 L MCV 87 MCH 29.1 MCHC 33.6 RDW 12.6 Plt Count 160 Seg Neutrophils % 85.2 H Lymphocytes % 7.6 L Monocytes % 6.3 Eosinophils % 0.5 Basophils % 0.4 Absolute Neutrophils 13.9 H Absolute Lymphocytes 1.2 Absolute Monocytes 1.0 Absolute Eosinophils 0.1 Absolute Basophils 0.1 Sodium 139.8 Potassium 3.6 Chloride 108 H Carbon Dioxide 23 Anion Gap 9 BUN 6 L Creatinine 0.52 Est GFR ( Amer) > 60 Est GFR (Non-Af Amer) > 60 Glucose 84 Calcium 8.1 L Impressions: Abdomen/Pelvis CT 07/29/16 00:00 IMPRESSION: Abnormal enhancement pattern in the left kidney suspicious for pyelonephritis or infarction. Correlation with urinalysis is recommended Guidance Fluoroscopy 07/29/16 00:00 IMPRESSION: SUCCESSFUL PLACEMENT OF A 5 FR DUAL LUMEN 43 CM PICC IN THE left basilic VEIN. Interventional Vascular Procedure 07/29/16 00:00 IMPRESSION: SUCCESSFUL PLACEMENT OF A 5 FR DUAL LUMEN 43 CM PICC IN THE left basilic VEIN. PICC Line Insertion 07/29/16 00:00 IMPRESSION: SUCCESSFUL PLACEMENT OF A 5 FR DUAL LUMEN 43 CM PICC IN THE left basilic VEIN. Assessment & Plan - Diagnosis (1) Pyelonephritis Is this a current diagnosis for this admission?: YesPlan: Secondary to gram-negative asmita. Continue empiric Zosyn therapy as she has failed outpatient Bactrim. Interventional radiology consulted for successful urgent PICC line placement. CT of the abdomen and pelvis confirms pyelonephritis. (2) Septic shock Is this a current diagnosis for this admission?: YesPlan: Resolved (3) Hypokalemia Is this a current diagnosis for this admission?: YesPlan: Mild. Adjust IV fluids accordingly. Continue to monitor. (4) Anemia Qualifiers: Anemia type: unspecified type Qualified Code(s): D64.9 - Anemia, unspecified Is this a current diagnosis for this admission?: YesPlan: No evidence for acute blood loss. Stable, Continue trend H&H. Likely due to sepsis. - Time Time Spent with patient: 25-34 minutes Anticipated discharge: Home Within: within 24 hours
[2016-07-31] MEDS ORDERED: POTASSI CL 20 MEQ/1/2NS 1L 1,000 ML IV PRN (11:31)
[2016-07-31] MEDS: PANTOPRAZOLE SODIUM 40 MG VIAL IV SCH ×2 (11:36→21:46)
[2016-08-01 03:29] LABS: ABSOLUTE EOSINOPHILS # (AUTO) 0.1 10^3/uL (0.0-0.6); ABSOLUTE LYMPHOCYTES (AUTO) 2.3 10^3/uL (0.5-4.7); ABSOLUTE MONOCYTES (AUTO) 0.6 10^3/uL (0.1-1.4); ABSOLUTE NEUT (AUTO) 6.8 10^3/uL (1.7-8.2); BASOPHILS % (AUTO) 0.4 % (0-2); EOSINOPHILS % (AUTO) 1.2 % (0-6); HEMATOCRIT 25.3 % (36.0-47.0); HEMOGLOBIN 8.5 g/dL (12.0-15.5); HGB HCT DIFFERENCE 0.2; LYMPHOCYTES % (AUTO) 23.7 % (13-45); MEAN CORPUSCULAR HEMOGLOBIN 29.3 pg (27.0-33.4); MEAN CORPUSCULAR HGB CONC 33.6 g/dL (32.0-36.0); MEAN CORPUSCULAR VOLUME 87 fl (80-97); MONOCYTES % (AUTO) 5.7 % (3-13); RED BLOOD COUNT 2.91 10^6/uL (3.72-5.28); RED CELL DISTRIBUTION WIDTH 12.5 % (11.5-14.0); WHITE BLOOD COUNT 9.8 10^3/uL (4.0-10.5)
[2016-08-01 04:10] LABS: ANION GAP 10 (5-19); BLOOD UREA NITROGEN 6 mg/dL (7-20); CALCIUM 8.1 mg/dL (8.4-10.2); CARBON DIOXIDE 24 mmol/L (22-30); CHLORIDE 106 mmol/L (98-107); CREATININE RESULT 0.51 mg/dL (0.52-1.25); GLUCOSE 77 mg/dL (75-110); POTASSIUM 3.5 mmol/L (3.6-5.0); SODIUM 139.8 mmol/L (137-145)
[2016-08-01] MEDS: PIPERACILLIN SODIUM/TAZOBACTAM 3.375 GM in NORMAL SALINE 100 ML IV SCH (05:27)
[2016-08-01] MEDS: OXYCODONE-ACETAMINOPHEN 5-325 MG TABLET PO PRN (08:27)
[2016-08-01] MEDS: DOCUSATE SODIUM 100 MG CAPSULE PO SCH (09:58)
[2016-08-01] MEDS: ENOXAPARIN SODIUM INJ 40 MG/0.4 ML DISP.SYRIN SUBCUT SCH (09:58)
[2016-08-01] MEDS: NORMAL SALINE 10 ML SDV (SCHEDULED) IV SCH ×2 (09:59→21:54)
[2016-08-01] MEDS ORDERED: IBUPROFEN 600 MG TABLET PO PRN (11:05)
[2016-08-01] MEDS ORDERED: INFLUENZA ADLT QUAD (36MOS+) 2016-17 VAC 0.5 ML SYR IM PRN (12:12)
[2016-08-01] MEDS ORDERED: CIPROFLOXACIN HCL 500 MG TABLET PO ONE (13:00)
[2016-08-01] MEDS ORDERED: POTASSIUM CHLORIDE 10 MEQ TABLET.SA PO ONE (13:00)
--- NOTE | 2016-08-01 13:45 | PDOC PROGRESS REPORT ---
Subjective Progress Note for:: 08/01/16 Subjective:: SYDNEE BROWNING is a 35 year old female presents from home with the above complaints for the past week. She was seen by her primary care provider at the beginning of the week and diagnosed with urinary tract infection and placed on Bactrim therapy. She does not notice any improvement while on this therapy. She continues to have increasing flank pain now bilateral. She reports subjective fevers at home, rigors, nausea with vomiting, diarrhea 24 hour period. This all started with dysuria on Monday. Her condition is severely declined to the point that she is not able to keep anything down take anything orally though she reports taking the Bactrim as prescribed. In the emergency department she was found to be hypotensive with a probable pyelonephritis and septic shock we were asked to admit for further treatment and investigation. After placement of PICC line and aggressive fluid resuscitation, several liters of IV fluids, and initiation of antibiotic therapy the patient has finally stabilized. Her hemodynamics more consistent with a healthy 35-year-old female. Her pain is better controlled this morning utilizing only oral analgesics. Her nausea has largely resolved. She is up ambulating in the room. CT of the abdomen and pelvis revealed findings in the left kidney suggestive of pyelonephritis as likely explanation for her presentation. Urine culture shows Escherichia coli resistant to Bactrim and penicillin likely explaining why she failed outpatient treatment. She was started empirically on Zosyn but that is changed to Cipro as of today. Physical Exam Vital Signs: Temp Pulse Resp BP Pulse Ox 98.2 F 75 18 117/82 97 08/01/16 11:35 08/01/16 11:35 08/01/16 11:35 08/01/16 11:35 08/01/16 11:35 Intake & Output 07/31/16 08/01/16 08/02/16 06:59 06:59 06:59 Intake Total 1546 4929 718 Output Total 400 Balance 1546 4929 318 Weight 99.836 kg 99.9 kg General appearance: PRESENT: no acute distress, well-developed, well-nourished Head exam: PRESENT: atraumatic, normocephalic Eye exam: PRESENT: conjunctiva pink, EOMI, PERRLA. ABSENT: scleral icterus Mouth exam: PRESENT: moist, tongue midline Neck exam: ABSENT: carotid bruit, JVD, lymphadenopathy, thyromegaly Respiratory exam: PRESENT: clear to auscultation dinorah. ABSENT: rales, rhonchi, wheezes Cardiovascular exam: PRESENT: RRR. ABSENT: diastolic murmur, rubs, systolic murmur Pulses: PRESENT: normal dorsalis pedis pul GI/Abdominal exam: PRESENT: normal bowel sounds, soft, tenderness - drawing frame tender in the left flank though markedly improved.. ABSENT: distended, guarding , rebound Extremities exam: PRESENT: full ROM, other - Nonpitting edema diffusely.. ABSENT: calf tenderness, clubbing, pedal edema Musculoskeletal exam: PRESENT: ambulatory, full ROM Neurological exam: PRESENT: alert, awake, oriented to person, oriented to place , oriented to time, oriented to situation Psychiatric exam: PRESENT: appropriate affect, normal mood Skin exam: PRESENT: warm. ABSENT: dry Results Laboratory Results: 08/01/16 03:18 08/01/16 03:18 08/01/16 08/01/16 08/01/16 03:18 03:18 03:18 WBC 9.8 RBC 2.91 L Hgb 8.5 L Hct 25.3 L MCV 87 MCH 29.3 MCHC 33.6 RDW 12.5 Plt Count 164 Seg Neutrophils % 69.0 Lymphocytes % 23.7 Monocytes % 5.7 Eosinophils % 1.2 Basophils % 0.4 Absolute Neutrophils 6.8 Absolute Lymphocytes 2.3 Absolute Monocytes 0.6 Absolute Eosinophils 0.1 Absolute Basophils 0.0 Retic Count (auto) 0.81 Absolute Retic 0.024 L Sodium 139.8 Potassium 3.5 L Chloride 106 Carbon Dioxide 24 Anion Gap 10 BUN 6 L Creatinine 0.51 L Est GFR ( Amer) > 60 Est GFR (Non-Af Amer) > 60 Glucose 77 Calcium 8.1 L Iron TIBC % Saturation Ferritin Vitamin B12 Folate 08/01/16 03:18 WBC RBC Hgb Hct MCV MCH MCHC RDW Plt Count Seg Neutrophils % Lymphocytes % Monocytes % Eosinophils % Basophils % Absolute Neutrophils Absolute Lymphocytes Absolute Monocytes Absolute Eosinophils Absolute Basophils Retic Count (auto) Absolute Retic Sodium Potassium Chloride Carbon Dioxide Anion Gap BUN Creatinine Est GFR ( Amer) Est GFR (Non-Af Amer) Glucose Calcium Iron 60 TIBC 201 L % Saturation 30 Ferritin 246.00 H Vitamin B12 596.0 Folate 10.50 Impressions: Abdomen/Pelvis CT 07/29/16 00:00 IMPRESSION: Abnormal enhancement pattern in the left kidney suspicious for pyelonephritis or infarction. Correlation with urinalysis is recommended Guidance Fluoroscopy 07/29/16 00:00 IMPRESSION: SUCCESSFUL PLACEMENT OF A 5 FR DUAL LUMEN 43 CM PICC IN THE left basilic VEIN. Interventional Vascular Procedure 07/29/16 00:00 IMPRESSION: SUCCESSFUL PLACEMENT OF A 5 FR DUAL LUMEN 43 CM PICC IN THE left basilic VEIN. PICC Line Insertion 07/29/16 00:00 IMPRESSION: SUCCESSFUL PLACEMENT OF A 5 FR DUAL LUMEN 43 CM PICC IN THE left basilic VEIN. Assessment & Plan - Diagnosis (1) Pyelonephritis Is this a current diagnosis for this admission?: YesPlan: Secondary to multidrug resistant Escherichia coli. Change empiric Zosyn therapy to Cipro oral . Interventional radiology consulted for successful urgent PICC line placement. CT of the abdomen and pelvis confirms pyelonephritis. (2) Septic shock Is this a current diagnosis for this admission?: YesPlan: Resolved (3) Hypokalemia Is this a current diagnosis for this admission?: YesPlan: Mild. Improved. Add oral replacement and monitor. Follow-up magnesium in the morning. (4) Anemia Qualifiers: Anemia type: unspecified type Qualified Code(s): D64.9 - Anemia, unspecified Is this a current diagnosis for this admission?: YesPlan: No evidence for acute blood loss. Stable, Continue trend H&H. Likely due to sepsis. - Time Time Spent with patient: 35 or more minutes Anticipated discharge: Home Within: within 24 hours - Likely home in the morning assuming pain is well controlled and she tolerates the transition to oral antibiotics.
[2016-08-01] MEDS: LACTOBACILLUS ACIDOPHILUS 250 MG TAB PO SCH (17:36)
[2016-08-01] MEDS: ONDANSETRON HCL INJ/PF 4 MG/2 ML SDV IV PRN (17:37)
[2016-08-01] MEDS: POTASSIUM CHLORIDE 10 MEQ TABLET.SA PO SCH (21:52)
[2016-08-01] MEDS: CIPROFLOXACIN HCL 500 MG TABLET PO SCH (21:52)
[2016-08-02] MEDS: OXYCODONE-ACETAMINOPHEN 5-325 MG TABLET PO PRN (01:05)
[2016-08-02 04:41] LABS: HEMATOCRIT 25.4 % (36.0-47.0); HEMOGLOBIN 8.5 g/dL (12.0-15.5); HGB HCT DIFFERENCE 0.1; MEAN CORPUSCULAR HEMOGLOBIN 29.2 pg (27.0-33.4); MEAN CORPUSCULAR HGB CONC 33.4 g/dL (32.0-36.0); MEAN CORPUSCULAR VOLUME 88 fl (80-97); RED CELL DISTRIBUTION WIDTH 12.6 % (11.5-14.0); WHITE BLOOD COUNT 7.2 10^3/uL (4.0-10.5)
[2016-08-02 05:08] LABS: ANION GAP 9 (5-19); BLOOD UREA NITROGEN 7 mg/dL (7-20); CALCIUM 8.3 mg/dL (8.4-10.2); CARBON DIOXIDE 27 mmol/L (22-30); CHLORIDE 104 mmol/L (98-107); CREATININE RESULT 0.51 mg/dL (0.52-1.25); GLUCOSE 78 mg/dL (75-110)
[2016-08-02] MEDS: LACTOBACILLUS ACIDOPHILUS 250 MG TAB PO SCH (09:54)
[2016-08-02] MEDS: DOCUSATE SODIUM 100 MG CAPSULE PO SCH (09:54)
[2016-08-02] MEDS: POTASSIUM CHLORIDE 10 MEQ TABLET.SA PO SCH (09:54)
[2016-08-02] MEDS: CIPROFLOXACIN HCL 500 MG TABLET PO SCH (09:54)
[2016-08-02] MEDS: ENOXAPARIN SODIUM INJ 40 MG/0.4 ML DISP.SYRIN SUBCUT SCH (09:55)
[2016-08-02] MEDS: NORMAL SALINE 10 ML SDV (SCHEDULED) IV SCH (09:55)
[2016-08-02 11:26] VITALS: BP 112/69
--- NOTE | 2016-08-02 13:58 | PDOC DISCHARGE SUMMARY ---
General - Admit/Disc Date/PCP Admission Date/Primary Care Provider: 07/29/16 09:41 Discharge Date: 08/02/16 - Discharge Diagnosis (1) Anemia Is this a current diagnosis for this admission?: YesSummary: Anemia of chronic disease Patient had normal iron, folate vitamin B-12 level (2) Hypokalemia Is this a current diagnosis for this admission?: YesSummary: Resolved (3) Pyelonephritis Is this a current diagnosis for this admission?: YesSummary: Acute pyelonephritis CT abdomen and pelvis did not show any postobstructive uropathy (4) Septic shock Is this a current diagnosis for this admission?: YesSummary: Secondary to UTI and pyelonephritis Resolved Urine culture was positive for Escherichia coli which was pansensitive Patient was treated with ceftriaxone during her hospital stay and discharged on Cipro 500 mg by mouth twice a day 10 days - Additional Information Resuscitation Status: Full Code Discharge Diet: As Tolerated Discharge Activity: Activity As Tolerated Home Medications: Acidoph/L.bulg/Bif.b/S.thermop [Bacid Caplet] 1 each PO BID #20 tablet 08/02/16 Ciprofloxacin HCl [Cipro 500 mg Tablet] 500 mg PO Q12 #20 tablet 08/02/16 Oxycodone HCl/Acetaminophen [Percocet 5-325 mg Tablet] 1 tab PO Q4HP PRN #20 tablet 08/02/16 History of Present Illness Patient complains of: Flank pain fever and chills History of Present Illness: SYDNEE BROWNING is a 35 year old female presents from home with the above complaints for the past week. She was seen by her primary care provider at the beginning of the week and diagnosed with urinary tract infection and placed on Bactrim therapy. She does not notice any improvement while on this therapy. She continues to have increasing flank pain now bilateral. She reports subjective fevers at home, rigors, nausea with vomiting, diarrhea 24 hour period. This all started with dysuria on Monday. Her condition is severely declined to the point that she is not able to keep anything down take anything orally though she reports taking the Bactrim as prescribed. In the emergency department she was found to be hypotensive with a probable pyelonephritis and septic shock we were asked to admit for further treatment and investigation. Hospital Course Hospital Course: Acute pyelonephritis and sepsis Patient was treated with IV fluids ceftriaxone CT abdomen and pelvis did not show any hydronephrosis She was never hypotensive and did not need pressors she was switched the after to Cipro by mouth 500 mg twice a day for 10 days IV access was poor A PICC line was inserted Patient had uncomplicated course and was discharged on by mouth antibiotics Physical Exam Vital Signs: Temp Pulse Resp BP Pulse Ox 98.0 F 80 18 112/69 98 08/02/16 11:25 08/02/16 11:25 08/02/16 11:25 08/02/16 11:25 08/02/16 11:25 Intake & Output 08/01/16 08/02/16 08/03/16 00:59 00:59 00:59 Intake Total 5193 4638 900 Output Total 1100 300 Balance 5193 3538 600 Weight 99.836 kg 99.9 kg 100.2 kg General appearance: PRESENT: no acute distress, well-developed, well-nourished Head exam: PRESENT: atraumatic, normocephalic Eye exam: PRESENT: conjunctiva pink, EOMI, PERRLA. ABSENT: scleral icterus Ear exam: PRESENT: normal external ear exam Mouth exam: PRESENT: moist, tongue midline Neck exam: ABSENT: carotid bruit, JVD, lymphadenopathy, thyromegaly Respiratory exam: PRESENT: clear to auscultation dinorah. ABSENT: rales, rhonchi, wheezes Cardiovascular exam: PRESENT: RRR. ABSENT: diastolic murmur, rubs, systolic murmur Pulses: PRESENT: normal dorsalis pedis pul Vascular exam: PRESENT: normal capillary refill GI/Abdominal exam: PRESENT: normal bowel sounds, soft. ABSENT: distended, guarding, mass, organolmegaly, rebound, tenderness Rectal exam: PRESENT: deferred Extremities exam: PRESENT: full ROM. ABSENT: calf tenderness, clubbing, pedal edema Neurological exam: PRESENT: alert, awake, oriented to person, oriented to place , oriented to time, oriented to situation, CN II-XII grossly intact. ABSENT: motor sensory deficit Psychiatric exam: PRESENT: appropriate affect, normal mood. ABSENT: homicidal ideation, suicidal ideation Skin exam: PRESENT: dry, intact, warm. ABSENT: cyanosis, rash Results Laboratory Results: 08/02/16 04:20 08/02/16 04:20 01/08/02/16 08/02/16 03:18 04:20 04:20 WBC 7.2 RBC 2.90 L Hgb 8.5 L Hct 25.4 L MCV 88 MCH 29.2 MCHC 33.4 RDW 12.6 Plt Count 171 Sodium 140.0 Potassium 4.0 Chloride 104 Carbon Dioxide 27 Anion Gap 9 BUN 7 Creatinine 0.51 L Est GFR ( Amer) > 60 Est GFR (Non-Af Amer) > 60 Glucose 78 Calcium 8.3 L Transferrin 125 L 07/29/16 08:24 Blood Culture - Preliminary Blood NO GROWTH 4 DAYS 07/29/16 06:03 Urine Culture - Final Clean Catch Midstream Escherichia Coli Impressions: Abdomen/Pelvis CT 07/29/16 00:00 IMPRESSION: Abnormal enhancement pattern in the left kidney suspicious for pyelonephritis or infarction. Correlation with urinalysis is recommended Guidance Fluoroscopy 07/29/16 00:00 IMPRESSION: SUCCESSFUL PLACEMENT OF A 5 FR DUAL LUMEN 43 CM PICC IN THE left basilic VEIN. Interventional Vascular Procedure 07/29/16 00:00 IMPRESSION: SUCCESSFUL PLACEMENT OF A 5 FR DUAL LUMEN 43 CM PICC IN THE left basilic VEIN. PICC Line Insertion 07/29/16 00:00 IMPRESSION: SUCCESSFUL PLACEMENT OF A 5 FR DUAL LUMEN 43 CM PICC IN THE left basilic VEIN. Plan Discharge Plan: Patient was discharged home with follow-up within a week time by primary care physician Time Spent: Less than 30 Minutes
== END 2016-08-02 11:58 | disposition home or self-care (01) | DRG 871 ==
LOC: ER 04:36 → EH 09:41 → UNDOADMIN 09:58 → 3S 07-30 17:31
PROVIDERS: ADMIT Internal Medicine; ATTEND Internal Medicine
PROC: 02HV33Z Insertion of Infusion Device into Superior Vena Cava, Percutaneous Approach (ICD-10-PCS; principal; 2016-07-29)
PROC: B548ZZA Ultrasonography of Superior Vena Cava, Guidance (ICD-10-PCS; 2016-07-29)
PROC: 3E0234Z Introduction of Serum, Toxoid and Vaccine into Muscle, Percutaneous Approach (ICD-10-PCS; 2016-08-02)
DX: A41.9 Sepsis, unspecified organism (principal); R65.21 Severe sepsis with septic shock; N10 Acute pyelonephritis; B96.20 Unspecified Escherichia coli [E. coli] as the cause of diseases classified elsewhere; E87.6 Hypokalemia; D63.8 Anemia in other chronic diseases classified elsewhere; F32.9 Major depressive disorder, single episode, unspecified; F41.9 Anxiety disorder, unspecified; Z16.24 Resistance to multiple antibiotics; Z23 Encounter for immunization
CPT/HCPCS: 36415; 36569; 74177; 76937; 77001; 80048; 81001; 81025; 82150; 82607; 82728; 82746; 82803; 83540; 83550; 83605; 83690; 83735; 84100; 84466; 85025; 85027; 85045; 85610; 87040; 87086; 87088; 87186; 90686; 96361; 96374; 96375; 99285; J0696; J1642; J1650; J1885; J1956; J2270; J2405; J2543; J3480; J3490; J7030; S0164

== ENCOUNTER 2017-02-28 16:05 | Emergency (ER) | payer OTHER ==
--- NOTE | 2017-02-28 16:50 | ER Document Report ---
ED Medical Screen (RME) - General Chief Complaint: Abscess Stated Complaint: ABSCESS ON RECTUM Time Seen by Provider: 02/28/17 16:39 Mode of Arrival: Ambulatory Information source: Patient Notes: 36-year-old female who is presents with complaints of abscess near her rectum. Patient notes similar episode in the past denies any fevers or chills nausea vomiting or diarrhea. Patient notes the area is tender to palpation I have greeted and performed a rapid initial assessment of this patient. A comprehensive ED assessment and evaluation of the patient, analysis of test results and completion of the medical decision making process will be conducted by additional ED providers. PHYSICAL EXAMINATION: GENERAL: Well-appearing, well-nourished and in no acute distress. HEAD: Atraumatic, normocephalic. EYES: Pupils equal round extraocular movements intact, conjunctiva are normal. ENT: Nares patent NECK: Normal range of motion LUNGS: No respiratory distress Musculoskeletal: Normal range of motion NEUROLOGICAL: Normal speech, normal gait. PSYCH: Normal mood, normal affect. SKIN: Area not examined due to lack of room to lay patient down TRAVEL OUTSIDE OF THE [place] IN LAST 30 DAYS: No - Related Data Allergies/Adverse Reactions: No Known Allergies Allergy (Verified 02/28/17 16:18) Past Medical History - Social History Chew tobacco use (# tins/day): No Frequency of alcohol use: None Drug Abuse: None Renal/ Medical History: Denies: Hx Peritoneal Dialysis Psychiatric Medical History: Reports: Hx Anxiety, Hx Depression - Immunizations Hx Diphtheria, Pertussis, Tetanus Vaccination: Yes Physical Exam - Vital signs Vitals: Temp Pulse BP Pulse Ox 98.5 F 98 112/64 98 02/28/17 16:20 02/28/17 16:20 02/28/17 16:20 02/28/17 16:20 Course - Vital Signs Vital signs: Temp Pulse Resp BP Pulse Ox 98.5 F 98 112/64 98 02/28/17 16:20 02/28/17 16:20 02/28/17 16:20 02/28/17 16:20
[2017-02-28] MEDS ORDERED: LIDOCAINE 1% INJ-PF (10 MG/ML) 30 ML SDV INJ ONE (17:35)
--- NOTE | 2017-02-28 17:36 | ER Document Report ---
ED Skin Rash/Insect Bite/Abscs <SHARAD VALDEZ - Last Filed: 02/28/17 18:13> - General Mode of Arrival: Ambulatory Information source: Patient TRAVEL OUTSIDE OF THE [place] IN LAST 30 DAYS: No - HPI Patient complains to provider of: Tender/swollen area Onset: Other - 3-4 days Onset/Duration: Gradual Quality of pain: Achy, Pressure Severity: Moderate Pain Level: 3 Skin Character: Abscess Skin Temperature: Warm Quality of rash: Painful Exacerbated by: Denies Relieved by: Denies Similar symptoms previously: Yes Recently seen / treated by doctor: No <BISI KESSLER - Last Filed: 02/28/17 19:50> - General Chief Complaint: Abscess Stated Complaint: ABSCESS ON RECTUM Time Seen by Provider: 02/28/17 16:39 - HPI Notes: Is a 36-year-old female presenting to the emergency room complaining of buttock abscess that has been present and worsening over the past 3-4 days, she is currently approximately 30 weeks , has a history of 2 abscesses in the past that required incision and drainage, denies any fever (BISI KESSLER) - Related Data Allergies/Adverse Reactions: No Known Allergies Allergy (Verified 02/28/17 16:18) Home Medications: Current Home Medications Furosemide [Lasix] 40 mg PO DAILY 02/28/17 [History] Vit/Iron Fumarate/FA [ Tablet] 1 each PO DAILY 02/28/17 [ History] Ranitidine HCl [Zantac 150 mg Tablet] 150 mg PO BID 02/28/17 [History] Sertraline HCl [Zoloft 50 mg Tablet] 50 mg PO DAILY 02/28/17 [History] Past Medical History - General Information source: Patient - Social History Smoking Status: Never Smoker Chew tobacco use (# tins/day): No Frequency of alcohol use: None Drug Abuse: None Family History: Reviewed & Not Pertinent Patient has suicidal ideation: No Patient has homicidal ideation: No Renal/ Medical History: Denies: Hx Peritoneal Dialysis Psychiatric Medical History: Reports: Hx Anxiety, Hx Depression - Immunizations Hx Diphtheria, Pertussis, Tetanus Vaccination: Yes <BISI KESSLER - Last Filed: 02/28/17 19:50> Review of Systems - Review of Systems Constitutional: No symptoms reported EENT: No symptoms reported Cardiovascular: No symptoms reported Respiratory: No symptoms reported Gastrointestinal: No symptoms reported Genitourinary: No symptoms reported Female Genitourinary: No symptoms reported Musculoskeletal: No symptoms reported Skin: See HPI Hematologic/Lymphatic: No symptoms reported Neurological/Psychological: No symptoms reported <BISI KESSLER - Last Filed: 02/28/17 19:50> Physical Exam <SHARAD VALDEZ - Last Filed: 02/28/17 18:13> <BISI KESSLER - Last Filed: 02/28/17 19:50> - Vital signs Vitals: Temp Pulse BP Pulse Ox 98.5 F 98 112/64 98 02/28/17 16:20 02/28/17 16:20 02/28/17 16:20 02/28/17 16:20 - Notes Notes: - General General appearance: Appears well, Alert In distress: None - HEENT Head: Normocephalic, Atraumatic Eyes: Normal Conjunctiva: Normal Extraocular movements intact: Yes Eyelashes: Normal Pupils: PERRL - Respiratory Respiratory status: No respiratory distress - Cardiovascular Rhythm: Regular - Abdominal Inspection: gravid female Buttocks: 3 cm area of induration, tenderness, erythema consistent with abscess with fluctuance to the left buttock - Back Back: Normal - Extremities General upper extremity: Normal inspection General lower extremity: Normal inspection - Neurological Neuro grossly intact: Yes Orientation: AAOx4 New Era Coma Scale Eye Opening: Spontaneous New Era Coma Scale Verbal: Oriented [place] Coma Scale Motor: Obeys Commands New Era Coma Scale Total: 15 - Psychological Associated symptoms: Normal affect, Normal mood - Skin Skin Temperature: Warm Skin Moisture: Dry Skin Color: Normal (BISI KESSLER) Course <SHARAD VALDEZ - Last Filed: 02/28/17 18:13> <BISI KESSLER - Last Filed: 02/28/17 19:50> - Re-evaluation Re-evalutation: 02/28/17 19:49 Incision and drainage was performed by GRICEL Valdez, patient tolerated procedure well, was discharged with instructions for follow-up and advised to return if any additional concerns, patient acknowledges understanding and agreement with this plan (BISI KESSLER) - Vital Signs Vital signs: Temp Pulse Resp BP Pulse Ox 98.1 F 96 15 109/63 99 02/28/17 18:47 02/28/17 18:47 02/28/17 18:47 02/28/17 18:47 02/28/17 18:47 Procedures - Incision and Drainage Left Buttock Time completed: 18:13 Type: Simple Anesthetic type: 1% Lidocaine mL's of anesthetic: 2 Blade size: 11 I&D procedure: Chlorprep applied Incision Method: Incision made by scalpel Amount/type of drainage: pus, blood <SHARAD VALDEZ - Last Filed: 02/28/17 18:13> <BISI KESSLER - Last Filed: 02/28/17 19:50> - Incision and Drainage Left Buttock Notes: 02/28/17 18:14 pt tolerated well (SHARAD VALDEZ) Discharge <SHARAD VALDEZ - Last Filed: 02/28/17 18:13> <BISI KESSLER - Last Filed: 02/28/17 19:50> - Discharge Clinical Impression: Abscess of buttock, left Condition: Stable Disposition: HOME, SELF-CARE Instructions: Abscess ([facility]), Post Incision and Drainage Additional Instructions: Follow up with your primary care provider in one to 2 days. Return to the emergency room immediately if symptoms worsen or any additional concerns. Referrals: JEAN PONCE DO [Primary Care Provider] - Follow up as needed
[2017-02-28 18:52] VITALS: BP 109/63
== END 2017-02-28 18:52 | disposition home or self-care (01) ==
LOC: ER 16:05
PROC: 0H98XZZ Drainage of Buttock Skin, External Approach (ICD-10-PCS; principal; 2017-02-28)
DX: O26.93 Pregnancy related conditions, unspecified, third trimester (principal); L02.31 Cutaneous abscess of buttock; Z3A.30 30 weeks gestation of pregnancy
CPT/HCPCS: 99283; 10060; J3490